=== PATIENT | female | born 1980 ===

== ENCOUNTER 2023-01-13 10:02 | Outpatient (CLI) | payer MEDICARE, MEDICAID, SELFPAY ==
--- NOTE | 2023-01-13 10:00 | RT.EKG_ITS ---
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
== END 2023-01-13 10:03 | disposition home or self-care (01) ==
PROVIDERS: Visit Provider Physician Assistant
DX: Z79.899 Other long term (current) drug therapy (principal)
CPT/HCPCS: 93005; 93010